=== PATIENT | female | born 1960 | race Caucasian/White ===

== ENCOUNTER 2024-12-15 09:43 | Emergency (ER) | payer MEDICARE, BC, SELFPAY ==
--- OUTSIDE RECORDS SUMMARY | 2024-12-15 09:54 | XMS_ITS | Patient Health Record ---
Author Organization [facility] Serv es Address [address] [place] [address] Care Team Providers Care Cow Puncher Name Role Phone Sheila Soto Unavailable [phone] Reason For Referral No Information Problems Problem Type SNOMED Code ICD Code Onset Dates Problem Status W/U Status Risk Notes Problem [id number] Obsessive-compul sive disorder, unspecified type (F42.9) Active confirmed Encounters Encounter Location Date Provider Diagnosis [facility] [address] [facility] [place] [address] 01/22/2024 Sheila Soto Obsessive-compulsive disorder, unspecified type F42.9 [facility] [address] [facility] [place] [address] 01/29/2024 Sheila Soto Obsessive-compulsive disorder, unspecified type F42.9 Assessments Encounter Date Diagnosis (ICD Code) Assessment Notes Treatment Notes Treatment Clinical Notes Section Notes 01/22/2024 Obsessive-compul sive disorder, unspecified type (ICD-10 - F42.9) 01/29/2024 Obsessive-compul sive disorder, unspecified type (ICD-10 - F42.9) Plan Of Treatment No Information Insurance Providers Payer Name Payer Address Payer Phone Subscriber Number Group Number Insured Name Patient Relationship to Insured Coverage Start Date Coverage End Date MEDICARE C[place] [address] [place] [address] [phone] [id number] CLAUDIA BROWN Self - patient is the insured 4 [employer] FED EMP PROG [address] [place] [address] [id number] CLAUDIA BROWN Self - patient is the insured 4
--- OUTSIDE RECORDS SUMMARY | 2024-12-15 09:54 | XMS_ITS | Encounter Summary ---
Author Organization [facility] Address [address] [place] [address] Care Team Providers Care Paradichlorobenzene Tender Name Role Phone Fortunato Brown MD Primary Care Provider Unavailab le Encounter Details Date Type Department Care Team (Late st Contact Info) Description 01/12/2003 Outpatient Historical [facility] [place], [place] Support Serv. ([facility]) [address] 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
--- OUTSIDE RECORDS SUMMARY | 2024-12-15 09:54 | XMS_ITS | Clinical Summary ---
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 Gender Identity Not on file Sexual Orientation Not on file Plan of Treatment Health Maintenance Due Date Last Done Comments DTAP/TDAP/TD VACCINES (1 - Tdap) 1980 HPV/Cotest (21-29) 1982 CERVICAL CANCER SCREENING 09/29/1991 HPV/Cotest (30-65) 09/29/1991 PAP SMEAR 09/29/1991 BREAST CANCER SCREENING 2001 COLORECTAL SCREENING 2006 Colorectal Cancer Screening 2006 FIT-DNA Q 3 years 2006 FIT/FOBT Q 1 year 2006 Flex Sig/CT Colonography Q 5 years 2006 ZOSTER VACCINE (1 of 2) 09/29/2011 INFLUENZA VACCINE (#1) 2024 RSV VACCINE (60+ or ) (1 - 1-dose 75+ series) 2036 Care Teams Pbx Supervisor Relationship Specialty Start Date End Date Fortunato Brown MD NO ADDRESS ON FILE PCP - General 01/12/03
--- OUTSIDE RECORDS SUMMARY | 2024-12-15 09:54 | XMS_ITS ---
Author Organization [facility] Address [address] [place] [address] Care Team Providers Care Gun Numberer Name Role Phone Sheila Soto Unavailable [phone] REASON FOR VISIT fu Encounters Encounter Location Date Provider Diagnosis [place] [address] [facility] [place] [address] 02/12/2024 Sheila Soto Plan Of Treatment No Information Progress Notes * CLAUDIA BROWNDOB: 2 (64 yo F)Acc No.[id number]:02/12/2024 F/U - Patient Patient: CLAUDIA GARCIA Provider: RAMÍREZ Parker :1960 A ge:63 Y S ex:Female Date:02/12/2024 Address:[facility] [address], [id number] Subjective: * Chief Complaints: * 1 . fu. Objective: Therapeutic Interventions: Assessment: Plan: * Images: Care Plan Details* * Electronic signature of ABHAY Heard on 12/15/2024 at 10:53 AM EDT Sign off status: Pending * Provider: RAMÍREZ Parker Date: 02/12/2024 Generated for Printi ng/Faxing/eTransmitting on: 12/15/2024 10:53 AM EDT
--- OUTSIDE RECORDS SUMMARY | 2024-12-15 09:54 | XMS_ITS | Encounter Summary ---
Author Organization [facility] Address 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
[2024-12-15 10:29] VITALS: BP 156/85; PULSE 83; RESP 20; TEMP 36.4; O2SAT 97
[2024-12-15 11:26] LABS: EDINFLUASCREEN Negative (Negative); EDINFLUBSCREEN Negative (Negative)
[2024-12-15 11:27] LABS: EDCOVIDSCREEN Negative (Negative)
--- NOTE | 2024-12-15 11:31 | ED_ITS ---
HPI - URI/Sore Throat General Chief Complaint: Upper Respiratory Infection Stated Complaint: Sore Throat /Bilateral Ear Pain History of Present Illness HPI Narrative: Patient is a 64-year-old female presents to urgent care with complaints of a cough, sore throat, earaches, and body aches. She reports her symptoms started on Friday night, 2 days ago. Patient reports she had a fever 2 nights ago of 100 ? and last night her temperature was 99?. She reports she used to be a smoker but no longer smokes cigarettes. Patient endorses some mild wheezing. She reports she has a history of bronchitis, fibromyalgia, chronic fatigue syndrome, and prediabetes. Patient denies any chest pain, urinary symptoms, or shortness of breath. Related Data Home Medications ?Medication ?Instructions ?Recorded ?Confirmed ?Last Taken ?Type atorvastatin 80 mg tablet mg 12/15/24 Unknown History blood sugar diagnostic (True 12/15/24 12/15/24 Unknown History Metrix Glucose Test Strip) blood-glucose meter (True Metrix 12/15/24 12/15/24 Unknown History Glucose Meter) celecoxib 200 mg capsule mg 12/15/24 Unknown History cyanocobalamin (vitamin B-12) mcg 12/15/24 Unknown History 1,000 mcg/mL injection solution donepezil 5 mg tablet mg 12/15/24 Unknown History ezetimibe 10 mg tablet mg 12/15/24 Unknown History lancets 32 gauge (Twist Lancets) 12/15/24 12/15/24 Unknown History levothyroxine 50 mcg tablet mcg 12/15/24 Unknown History (Synthroid) lidocaine 5 % topical patch patch 12/15/24 Unknown History memantine 10 mg tablet mg 12/15/24 Unknown History omeprazole 40 mg capsule,delayed mg 12/15/24 Unknown History release pregabalin 150 mg capsule mg 12/15/24 Unknown History semaglutide 0.25 mg or 0.5 mg (2 mg subcut 12/15/24 Unknown History mg/3 mL) subcutaneous pen injector ([employer]pic) sertraline 25 mg tablet mg 12/15/24 Unknown History syringe with needle 3 mL 23 x 1 12/15/24 12/15/24 Unknown History (BD Luer-Justo Syringe) tramadol 50 mg tablet mg 12/15/24 Unknown History trazodone 50 mg tablet mg 12/15/24 Unknown History venlafaxine 150 mg mg PO 12/15/24 Unknown History capsule,extended release 24 hr Allergies Allergy/AdvReac Type Severity Reaction Status Date / Time tetracycline Allergy Mild Hives Verified 12/15/24 10:55 Review of Systems Review of Systems: All systems reviewed & are unremarkable except as noted in HPI and below Exam Narrative: GENERAL: Well appearing, well-nourished, non-toxic, in no acute distress. HEENT: Supple. No adenopathy, no masses. Hoarse voice. Throat is not red, tonsils are not swollen, no visible pus. Tympanic membranes pearly and intact. No redness of signs of infection. RESPIRATORY: Airway patent, respirations nonlabored. Clear to auscultation bilaterally, no rales, rhonchi, wheezing. CARDIOVASCULAR: Regular rate and rhythm without murmurs, rubs, or gallops. Peripheral pulses 2+ and equal bilaterally. ABDOMINAL: Soft, nontender, nondistended, no hepatosplenomegaly. Normoactive BS. MUSCULOSKELETAL: Moves all extremities. Strength/ROM intact without gross deformities. SKIN: Warm, dry, normal color. No rashes. Course Course Level of Care: Express Care Visit Vital Signs Vital signs: Vital Signs Temperature 36.4 C 12/15/24 10:29 Pulse Rate 83 12/15/24 10:29 Respiratory Rate 20 12/15/24 10:29 Blood Pressure 156/85 H 12/15/24 10:29 Pulse Oximetry 97 12/15/24 10:29 Oxygen Delivery Room Air 12/15/24 10:29 Temperature 36.4 C 12/15/24 10:29 Pulse Rate 83 12/15/24 10:29 Respiratory Rate 20 12/15/24 10:29 Blood Pressure 156/85 H 12/15/24 10:29 Pulse Oximetry 97 12/15/24 10:29 Oxygen Delivery Room Air 12/15/24 10:29 MDM - URI/Sore Throat MDM Narrative Medical decision making narrative: Patient is a 64-year-old female presents to urgent care with complaints of a cough, sore throat, earaches, and body aches. She reports her symptoms started on Friday night, 2 days ago. Patient reports she had a fever 2 nights ago of 100 ? and last night her temperature was 99?. She reports she used to be a smoker but no longer smokes cigarettes. Patient endorses some mild wheezing. She reports she has a history of bronchitis, fibromyalgia, chronic fatigue syndrome, and prediabetes. Patient denies any chest pain, urinary symptoms, or shortness of breath. Labs Ordered: COVID/flu/RSV swab Results: COVID/flu/RSV swab negative Diagnosis: upper respiratory infection Patient Education/Shared MDM: Results of lab work shared with patient. Patient strongly advised to maintain hydration status upon discharge and follow-up with their PCP as soon as possible. She should return to urgent care if her symptoms don't improve in the next two days. She will be discharged home with a prescription for cough medicine, an inhaler, and Prednisone. Strict return precautions provided. Patient verbalized understanding and is in agreement with plan. Vital signs stable at time of discharge. All questions answered. Differential Diagnosis Differential diagnosis: Likely upper respiratory infection, otitis media, viral infection, bronchitis and influenza Lab Data Attestation: I reviewed the patient's lab results. Labs: Lab Results 12/15/24 Range/Units 11:25 POC Influenza A Ag Negative (Negative) POC Influenza B Ag Negative (Negative) POC SARS CoV-2 Ag Negative (Negative) Discharge Plan Discharge Clinical Impression: Upper respiratory infection Patient Disposition: Home Condition: Stable Instructions: Antibiotic Form Additional Instructions: Please present to the ER with any worsening symptoms or return to urgent care if your symptoms have not improved in 2-3 days. Follow-up with primary care provider as soon as possible. Take all medications as prescribed, including regularly scheduled medications. You may take Tylenol and Ibuprofen for pain control. Patient Language: Stateless Prescriptions: New albuterol sulfate [Ventolin HFA] 90 mcg/actuation HFA aerosol inhaler 2 puff inhalation QID PRN (Reason: shortness of breath or wheezing) Qty: 8.5 0RF prednisone 50 mg tablet 50 mg PO DAILY Qty: 5 0RF promethazine-DM 6.25-15 mg/5 mL syrup 5 ml PO Q4-6H PRN (Reason: cough) Qty: 473 0RF No Action celecoxib 200 mg capsule atorvastatin 80 mg tablet donepezil 5 mg tablet (DME) blood-glucose meter [True Metrix Glucose Meter] Misc MISCELLANEOUS trazodone 50 mg tablet (DME) syringe with needle [BD Luer-Justo Syringe] 3 mL 23 x 1 syringe MISCELLANEOUS venlafaxine 150 mg capsule,extended release 24hr PO (DME) True Metrix Glucose Test Strip Strip MISCELLANEOUS omeprazole 40 mg capsule,delayed release(DR/EC) tramadol 50 mg tablet levothyroxine [Synthroid] 50 mcg tablet cyanocobalamin (vitamin B-12) 1,000 mcg/mL solution lidocaine 5 % adhesive patch,medicated sertraline 25 mg tablet ezetimibe 10 mg tablet memantine 10 mg tablet pregabalin 150 mg capsule (DME) Twist Lancets 32 gauge mis MISCELLANEOUS Ozempic 0.25 mg or 0.5 mg (2 mg/3 mL) pen injector SUBCUT Follow-up/Referrals: [facility] [Other] Time of Disposition: 11:41
== END 2024-12-15 11:46 | disposition home or self-care (01) ==
PROVIDERS: Emergency Provider Registered Nurse
DX: J06.9 Acute upper respiratory infection, unspecified (principal); Z20.822 Contact with and (suspected) exposure to COVID-19; Z87.891 Personal history of nicotine dependence; M79.7 Fibromyalgia; R73.03 Prediabetes
CPT/HCPCS: 87426; 87804; 99203; G0463